=== PATIENT | female | born 1965 | race Caucasian/White ===

== ENCOUNTER 2016-03-29 14:47 | Day surgery (SDC) | payer OTHER ==
[2016-03-27 11:05] VITALS: BMI 23.6
[2016-03-29] MEDS ORDERED: oxyCODONE HCL 5 MG TABLET PO PRN ×2 (15:55)
[2016-03-29] MEDS ORDERED: ONDANSETRON 4 MG/2 ML VIAL IVPUSH PRN (15:55)
[2016-03-29] MEDS ORDERED: MIDAZOLAM HCL 2 MG/2 ML SINGLE DOSE VIAL ONE (16:54)
[2016-03-29] MEDS ORDERED: ONDANSETRON 4 MG/2 ML VIAL ONE (17:37)
[2016-03-29] MEDS ORDERED: DEXAMETHASONE SOD PHOSPHATE 4 MG/1 ML VIAL ONE (17:39)
[2016-03-29] MEDS ORDERED: KETOROLAC TROMETHAMINE 30 MG/1 ML VIAL ONE (17:40)
[2016-03-29 18:29] VITALS: PULSE 69; TEMP 98.5
[2016-03-29 18:53] VITALS: BP 113/72
--- NOTE | 2016-03-29 20:39 | OP ---
DATE OF OPERATION: 03/29/2016 PREOPERATIVE DIAGNOSES: 1. Left carpal tunnel syndrome. 2. Left de Quervain's tenosynovitis. POSTOPERATIVE DIAGNOSES: 1. Left carpal tunnel syndrome. 2. Left de Quervain's tenosynovitis. OPERATIVE PROCEDURE: 1. Left carpal tunnel release. 2. Left 1st dorsal compartment release. SURGEON: Callum Tatum MD ANESTHESIA: Local with sedation. COMPLICATIONS: None. ESTIMATED BLOOD LOSS: Minimal. INDICATIONS FOR PROCEDURE: The patient is a 51-year-old female with the above findings and indications for operative treatment. Risks, benefits, and alternatives were discussed with the patient at length. Proper informed consent was obtained. PROCEDURE: After proper identification of patient and corrective operative site, patient was brought to the operating room and placed supine on the table. Prominences were well-padded. Sedation was given by the anesthesiologist as well as local anesthesia given with 2% lidocaine. Left upper extremity was prepped and draped in the usual sterile fashion. Well-padded tourniquet was placed with a sterile prep. Esmarch bandage was used to exsanguinate the left upper extremity. Tourniquet was inflated to 250 mmHg. Longitudinal incision was made to the proximal aspect of the palm. Incision was made sharply through the skin with blunt and sharp dissection to the subcutaneous tissues. Palmar fascia was split longitudinally. Transcarpal ligament, along with the distal 4 cm of the antebrachial fascia were divided longitudinally under direct visualization with loupe magnification. This provided complete release of the median nerve to the wrist. The wound was irrigated with saline and repaired with 5-0 nylon suture. A second incision was made transversely over the radial styloid. Incision was taken sharply through the skin with blunt and sharp dissection through the subcutaneous tissues. Neurovascularly structures were carefully identified and protected. The 1st dorsal compartment was identified and divided along its dorsal border. Subcompartment was noted and was also divided. Synovitis of the 1st dorsal compartment was noted and was debrided. The wrist was taken through range of motion. There was no subluxation of the tendons. The wound was irrigated with saline and repaired with a 4-0 Monocryl suture. Steri-Strips and sterile dressings were placed. Patient was reversed from anesthesia and brought to the recovery room in stable condition. She tolerated the procedure well. CALLUM TATUM M.D. [id number]
== END 2016-03-29 18:56 | disposition home or self-care (01) ==
LOC: FASU 14:47
PROVIDERS: ATTEND Orthopaedic Surgery Hand Surgery
PROC: 01N50ZZ Release Median Nerve, Open Approach (ICD-10-PCS; principal; 2016-03-29 08:00)
PROC: 0L860ZZ Division of Left Lower Arm and Wrist Tendon, Open Approach (ICD-10-PCS; 2016-03-29 08:00)
DX: G56.02 Carpal tunnel syndrome, left upper limb (principal); M65.4 Radial styloid tenosynovitis [de Quervain]

== ENCOUNTER 2016-11-22 10:33 | Day surgery (SDC) | payer OTHER ==
[2016-11-14 11:29] VITALS: BMI 23.6
[2016-11-22] MEDS ORDERED: PROPOFOL 20 ML ONE ×2 (11:25)
[2016-11-22] MEDS ORDERED: MIDAZOLAM HCL 2 MG/2 ML SINGLE DOSE VIAL ONE (11:25)
[2016-11-22] MEDS ORDERED: KETOROLAC TROMETHAMINE 30 MG/1 ML VIAL ONE (11:28)
[2016-11-22] MEDS ORDERED: LIDOCAINE HCL/PF 2% SDV 5ML VIAL ONE (11:28)
[2016-11-22] MEDS ORDERED: ONDANSETRON 4 MG/2 ML VIAL ONE (11:28)
[2016-11-22] MEDS ORDERED: BUPIVACAINE HCL/PF 0.5% (5MG/ML) 10 ML VIAL ONE (12:21)
[2016-11-22] MEDS ORDERED: LIDOCAINE HCL 2% (50ML VIAL) INF ONE (12:40)
[2016-11-22 14:01] VITALS: BP 104/61; PULSE 65; TEMP 98
--- NOTE | 2016-11-23 09:40 | OP ---
DATE OF OPERATION: 11/22/2016 PREOPERATIVE DIAGNOSIS: Right carpal tunnel syndrome. POSTOPERATIVE DIAGNOSIS: Right carpal tunnel syndrome. OPERATIVE PROCEDURE: Right carpal tunnel release. SURGEON: Callum Lopez MD ANESTHESIA: Local with sedation. COMPLICATIONS: None. ESTIMATED BLOOD LOSS: Minimal. INDICATIONS FOR PROCEDURE: The patient is a 51-year-old female with the above findings, indicated for operative treatment. The risks, benefits, and alternatives were discussed with the patient at length. Proper informed consent was obtained. PROCEDURE: After proper identification of the patient and the correct operative site, the patient was brought to the operating room and placed on the table with prominences well padded. Sedation was given by the anesthesiologist. Local anesthesia was given with 2% lidocaine. Right upper extremity was prepped and draped in the usual sterile fashion. Well-padded tourniquet was placed with a sterile prep. Esmarch bandage used to exsanguinate the right upper extremity. Tourniquet inflated to 250 mmHg. A longitudinal incision made over the carpal canal. Incision was taken sharply through the skin with blunt and sharp dissection through subcutaneous tissues. Palmar fascia was divided longitudinally. The transverse carpal ligament along with the distal 4 cm of antebrachial fascia was divided longitudinally under direct visualization with loupe magnification. This provided complete release of the median nerve at the wrist. Wound was irrigated with saline and repaired with 5-0 nylon suture. Sterile dressings were applied. The patient was reversed from anesthesia and brought to the recovery room in stable condition. She tolerated the procedure well. Jeremy [id number]
== END 2016-11-22 13:35 | disposition home or self-care (01) ==
LOC: FASU 10:33
PROVIDERS: ATTEND Orthopaedic Surgery Hand Surgery
PROC: 01N50ZZ Release Median Nerve, Open Approach (ICD-10-PCS; principal; 2016-11-22 12:43)
DX: G56.01 Carpal tunnel syndrome, right upper limb (principal)